=== PATIENT | female | born 1935 | race Caucasian/White ===

== ENCOUNTER 2021-11-20 14:11 | Emergency (ER) | payer OTHER ==
[~2021-11-20] VITALS: Ht 162.6 cm; Wt 73.5 kg
[2021-11-20] MEDS ORDERED: TDAP DIPH,PERTUSS,TET VAC/PF 0.5 ML DISP.SYRIN IM ONE ×2 (14:30→15:02)
--- NOTE | 2021-11-20 15:07 | NUR ---
PT is unable to recall list of her home meds.
--- NOTE | 2021-11-20 17:08 | NUR ---
Patient discharged to home in stable condition. Written and verbal after care instructions given. Patient verbalizes understanding of instructions. Stressed follow up or return to ER for worsening s/s. Pt walked out of w/ steady gait.
== END 2021-11-20 16:30 | disposition home or self-care (01) ==
LOC: ER 14:11
DX: S09.90XA Unspecified injury of head, initial encounter (principal); S00.03XA Contusion of scalp, initial encounter; S50.311A Abrasion of right elbow, initial encounter; W06.XXXA Fall from bed, initial encounter; Y92.89 Other specified places as the place of occurrence of the external cause; E78.5 Hyperlipidemia, unspecified; M50.30 Other cervical disc degeneration, unspecified cervical region; N28.9 Disorder of kidney and ureter, unspecified
CPT/HCPCS: 70450; 71045; 72125; 73080; 90715; A4663